=== PATIENT | male | born 1980 | race Caucasian/White ===

== ENCOUNTER 2017-02-13 14:57 | Inpatient (IN) ==
[2017-02-13 18:56] LABS: Basophils # 0.1 K/mcL (0.0-0.2); Basophils % 1.1 %; Eosinophils # 0.3 K/mcL (0.0-0.6); Eosinophils % 3.6 %; Immature Granulocytes % 0.4 % (0-4); Lymphocytes % 32.6 %; Mean Corpuscular HGB Conc 34.1 g/dL (31.6-35.5); Mean Corpuscular Hemoglobin 31.7 pg (28.0-33.3); Mean Platelet Volume 9.7 fL (9.4-12.4); Monocytes # 0.7 K/mcL (0.0-1.3); Neutrophils # 4.9 K/mcL (1.6-8.9); Platelet Count 272 K/mcL (140-400); Red Blood Count 4.73 M/mcL (4.19-5.50); Red Cell Distribution Width 13.5 % (11.5-14.5); Segmented Neutrophils % 54.3 %
[2017-02-13] MEDS ORDERED: *HR* Morphine 2 MG/ML SYRINGE IVP ONE (19:05)
[2017-02-13] MEDS ORDERED: Ondansetron 4 MG/2 ML VIAL IV ONE (19:05)
[2017-02-13] MEDS ORDERED: 0.9 % Sodium Chloride 1,000 ML IVC ONE (19:05)
--- NOTE | 2017-02-13 19:06 | Emergency Department Note ---
Disposition Clinical Impression: Abdominal pain Qualifiers: Abdominal location: right lower quadrant Qualified Code(s): R10.31 - Right lower quadrant pain Acute Crohn's disease Qualifiers: Digestive disease complication type: without complication Qualified Code(s): K50.90 - Crohn's disease, unspecified, without complications Disposition: Admitted As Inpatient Condition: Undetermined Referrals: NO,PCP [Primary Care Provider] - Forms: Work/School Release, ED Satisfaction Letter Time of Disposition: 20:35 Abdominal Pain HPI - General Chief Complaint: ED Abdominal Pain Stated Complaint: abd pain Time Seen by Provider: 02/13/17 18:06 Source: patient Mode of arrival: ambulatory Limitations: no limitations Nursing Notes Reviewed: Yes Vital Signs Reviewed: Yes - History of Present Illness HPI Narrative: 36-year-old male with history of Crohn's disease arrives to [facility] emergency department after the patient was complaining of 4 days of right lower quadrant pain. The patient states he has had a flare up of his Crohn's in the past roughly 2 years ago. He did see a specialist at that time. The patient denies any medications or visits with specialist since then. The patient does not regularly have any flareups. The patient states that he had associated nausea and black stools. The patient did go to urgent care yesterday for evaluation because initially the patient was thinking he was experiencing kidney stones. He was told that he was having a Crohn's flare and he was prescribed methyl prednisone. The patient states that his pain is worsened over the past 24 hours. He continues to experience black stools and his abdomen is slightly distended from his baseline. The patient denies any fevers but does admit to subjective chills. Pt Subjective Complaint: abdominal pain Onset (ago): day(s) (4) Consistency: constant Location: RLQ Pain Severity: moderate Pain Scale: 8 Quality: cramping, stabbing Radiation: none Migration to: no migration Improves with: nothing Worsens with: nothing Context: history of similar episodes Associated symptoms: Reports: nausea, diarrhea, chills, melena Treatments prior to arrival: other (prednisone) - Related Data Home Medications Medication Instructions Recorded Confirmed Tylenol 02/13/17 Allergies Allergy/AdvReac Type Severity Reaction Status Date / Time Penicillins [PCN] Allergy Swelling Verified 02/13/17 14:02 of Lip/Tongue/Throat Review of Systems: Review of Systems Constitutional: Denies fevers, admits to chills, HEENT: Denies headache, Respiratory: Denies cough, sputum change, hemoptysis, dyspnea Cardiac: Denies chest pain, pressure, palpitations, dyspnea on exertion, pedal edema Gastrointestinal: Admits to abdominal pain, denies changes in bowel habits, vomiting, admits to nausea, denies hematemesis, hematochezia, admits to melena Genitourinary: Denies dysuria, hematuria, nocturia, change in frequency, urgency, incontinence Neurologic: Denies headaches, dizziness, syncope, focalized weakness, paraesthesias, weakness Musculoskeletal: Denies back pain, joint pain, admits to myalgias All systems ED: reviewed and negative except as stated. Abdominal Pain PMH - Past Medical History Medical history: Reports: asthma, kidney stones, other (Crohn's disease) Male Surgical History: Reports: no surgical history Psychiatric history: Reports: no psych history - Social History Smoking status: Former smoker Alcohol use: Reports: none Drug use: Reports: none Physical Exam - General Limitations: no limitations General appearance: alert - Head Head exam: atraumatic, normocephalic, normal inspection - Eye Eye exam: Present: normal appearance, PERRL, EOMI - ENT ENT exam: normal exam, normal oropharynx, mucous membranes moist - Neck Neck exam: Present: normal inspection, full ROM, trachea midline - Chest Chest inspection: Present: normal inspection, symmetric chest wall rise - Respiratory Respiratory exam: Present: normal lung sounds bilaterally - Cardiovascular Cardiovascular exam: Present: regular rate, normal rhythm, normal heart sounds - Abdominal Exam Abdominal exam: Present: tenderness (Right lower quadrant pain), distention, guarding, diminished bowel sounds. Absent: rebound, rigidity Abdominal tenderness: Present: RLQ - Extremities Exam Extremities exam: Present: normal inspection, full ROM. Absent: tenderness, pedal edema - Back Exam Back exam: Present: normal inspection, full ROM. Absent: tenderness - Neurological Exam Neurological exam: Present: alert, oriented X3 - Psychiatric Psychiatric exam: Present: normal affect, normal mood - Skin Skin exam: Present: warm, dry, intact, normal color Course Vital Signs Temperature 97.6 F 02/13/17 15:33 Pulse Rate 105 02/13/17 15:33 Respiratory Rate 16 02/13/17 15:33 Blood Pressure 134/88 02/13/17 15:33 O2 Sat by Pulse Oximetry 97 02/13/17 15:33 Temperature 97.6 F 02/13/17 15:33 Pulse Rate 95 02/13/17 19:34 Respiratory Rate 16 02/13/17 19:34 Blood Pressure 114/79 02/13/17 19:34 O2 Sat by Pulse Oximetry 96 02/13/17 19:34 Oxygen Delivery Oxygen Delivery Room Air Abdominal Pain - MDM Narrative Medical decision making narrative: CT scan of the patient's abdomen reveals findings consistent with early partial bowel obstruction versus changes associated with intra-abdominal process. The patient has no leukocytosis or fever at this time. The patient's pain has been fairly difficult to control here in the emergency department as with his nausea. The patient does not have follow-up with GI physician. Patient does not feel comfortable being discharged at this time. Admit the patient to the hospital for pain control, steroid administration, and follow-up. Spoke with Dr. Rodriguez who requested that we inform her surgery that the patient will be admitted to the hospital. Patient accepted. - Lab Data Lab results reviewed: Yes I reviewed the patient's lab results. Result diagrams: 02/13/17 18:50 02/13/17 18:50 Lab Results 02/13/17 02/13/17 02/13/17 Range/Units 18:50 18:50 21:00 WBC 9.1 (4.3-11.1) K/mcL RBC 4.73 (4.19-5.50) M/mcL Hgb 15.0 (12.9-16.9) g/dL Hct 44.0 (37.5-50.1) % MCV 93.0 (83.0-100.0) fL MCH 31.7 (28.0-33.3) pg MCHC 34.1 (31.6-35.5) g/dL RDW 13.5 (11.5-14.5) % Plt Count 272 (140-400) K/mcL MPV 9.7 (9.4-12.4) fL Immature Gran % 0.4 (0-4) % Seg Neutrophils % 54.3 % Lymphocytes % 32.6 % Monocytes % 8.0 % Eosinophils % 3.6 % Basophils % 1.1 % Neutrophils # 4.9 (1.6-8.9) K/mcL Lymphocytes # 3.0 (0.6-4.6) K/mcL Monocytes # 0.7 (0.0-1.3) K/mcL Eosinophils # 0.3 (0.0-0.6) K/mcL Basophils # 0.1 (0.0-0.2) K/mcL Sodium 138 (136-145) mEq/L Potassium 4.1 (3.5-4.5) mEq/L Chloride 104 (98-109) mEq/L Carbon Dioxide 21 (19-29) mEq/L BUN 14 (8-26) mg/dL Creatinine 0.91 (0.72-1.25) mg/dL Est GFR ( Amer) > 60 (> 60) Est GFR (Non-Af Amer) > 60 (> 60) BUN/Creatinine Ratio 15 (6-26) Glucose 89 (70-99) mg/dL Calculated Osmolality 286 (280-300) Calcium 9.7 (8.6-10.8) mg/dL Total Bilirubin 0.3 (0.2-1.2) mg/dL Direct Bilirubin 0.1 (0.0-0.5) mg/dL Indirect Bilirubin 0.2 (0.0-1.2) mg/dL AST 23 (5-34) Units/L ALT 37 (0-55) Units/L Alkaline Phosphatase 76 (38-126) Units/L Serum Total Protein 7.9 (6.0-8.3) g/dL Albumin 4.1 (3.5-5.0) g/dL Globulin 3.8 H (2.4-3.5) g/dL Albumin/Globulin Ratio 1.1 (1.1-2.2) Amylase 48 (25-125) Units/L Lipase 32 (8-78) Units/L Urine Color Yellow (Yellow) Urine Clarity Clear (Clear) Urine pH 5.5 (5.0-8.0) pH Units Ur Specific [place] > 1.030 H (1.010-1.025) Urine Protein Negative (Neg-Trace) mg/dL Urine Glucose (UA) Normal (Normal) mg/dL Urine Ketones Negative (Negative) mg/dL Urine Blood Negative (Negative) Urine Nitrite Negative (Negative) Urine Bilirubin Negative (Negative) Urine Urobilinogen Normal (Normal) mg/dL Ur Leukocyte Esterase Negative (Negative) Ur Culture Indicated? NO (NO) - Radiology Data Radiology results reviewed: Yes I reviewed the patient's radiology results.
[2017-02-13 19:10] LABS: Alanine Aminotransferase 37 Units/L (0-55); Albumin 4.1 g/dL (3.5-5.0); Albumin/Globulin Ratio 1.1 (1.1-2.2); Alkaline Phosphatase 76 Units/L (38-126); Amylase 48 Units/L (25-125); Aspartate Amino Transferase 23 Units/L (5-34); BUN/Creatinine Ratio 15 (6-26); Bilirubin,Direct 0.1 mg/dL (0.0-0.5); Bilirubin,Indirect 0.2 mg/dL (0.0-1.2); Bilirubin,Total 0.3 mg/dL (0.2-1.2); Blood Urea Nitrogen 14 mg/dL (8-26); Calcium 9.7 mg/dL (8.6-10.8); Carbon Dioxide 21 mEq/L (19-29); Chloride 104 mEq/L (98-109); Globulin 3.8 g/dL (2.4-3.5); Lipase 32 Units/L (8-78); Osmolality,Calculated 286 (280-300); Potassium 4.1 mEq/L (3.5-4.5); Sodium 138 mEq/L (136-145); Total Protein 7.9 g/dL (6.0-8.3); eGFR For African Americans > 60 (> 60); eGFR For Non-African Americans > 60 (> 60)
[2017-02-13 19:14] LABS: Glucose 89 mg/dL (70-99)
--- NOTE | 2017-02-13 19:42 | Emergency Department Note ---
START Narrative - START START: I examined this patient and my medical decision-making was reviewed with the RU[employer] M[employer] OPERATOR/PA/Advanced Practice Nurse/Resident Physician. I agree with the documented findings, disposition and treatment plan as described except to the extent set forth below. ED attending note: Patient seen with emergency medicine resident Dr. Bhandari. Please see a copy of his note for details of the H&P, evaluation, management and disposition of this patient. We independently had [id number] contact with the patient Briefly: A 36-year-old male history of Crohn's disease. Currently not seeing a specialist normal on inspection medicines for this was seen in an outside facility a few days ago and discharged home. Increasing abdominal bloating talk or black stools and abdominal pain. He is bloated but not tympanitic. He slightly tachycardic at rest 105. He is diffusely tender but no rebound. Patient will get labs IV fluids anti-emetics analgesics abdominal pelvic CT with IV contrast. Disposition pending.
[2017-02-13 21:10] LABS: Bilirubin,Urine Negative (Negative); Blood,Urine Negative (Negative); Clarity,Urine Clear (Clear); Color,Urine Yellow (Yellow); Glucose,Urine (UA) Normal (Normal); Ketones,Urine Negative (Negative); PH,Urine 5.5 pH Units (5.0-8.0); Protein,Urine Negative (Neg-Trace); Specific Gravity,Urine > 1.030 (1.010-1.025); Urobilinogen,Urine Normal (Normal)
[2017-02-13 21:11] LABS: Leukocyte Esterase,Urine Negative (Negative); Nitrite,Urine Negative (Negative)
[2017-02-13] MEDS ORDERED: *HR* HYDROmorphone (PF) 1 MG/ML SYRINGE IVP ONE (21:49)
[2017-02-14] MEDS: *HR* Morphine 2 MG/ML SYRINGE IVP PRN ×5 (02:16→21:51)
[2017-02-14] MEDS: 0.9 % Sodium Chloride 1,000 ML IVC SCH ×3 (02:36→18:58)
[2017-02-14] MEDS ORDERED: Naloxone 0.4 MG/ML INJ IVP PRN (02:43)
[2017-02-14] MEDS ORDERED: Acetaminophen 325 MG TABLET PO PRN (02:43)
[2017-02-14] MEDS ORDERED: methylPREDNISolone 125 MG/2 ML VIAL IVP ONE (02:46)
--- NOTE | 2017-02-14 02:49 | Internal Med History&Physical ---
Date of Encounter: 02/14/17 Time of Encounter: 02:48 Assessment and Plan (1) Acute Crohn's disease Status: Suspected Emperically treat with solumedrol. ? antibiotics. will obtain stool cultures. GI consult, for further management and w/u Qualifiers: Digestive disease complication type: with rectal bleeding Qualified Code(s) : K50.911 - Crohn's disease, unspecified, with rectal bleeding (2) Partial small bowel obstruction Status: Acute Per CT scan of the abdomen. Keep NPO / bowel rest, IV fluids. solumedrol. (3) Hematochezia Status: Acute Likely due to crohn's disease / enteritis. Monitor H&H. PRBC transfusion, if there is significant drop in H&H (4) Abdominal pain Status: Acute Likely due to crohn's disease and partial SBO. supportive care Qualifiers: Abdominal location: generalized Qualified Code(s): R10.84 - Generalized abdominal pain Internal Medicine - H&P: HPI Chief complaint: Abdominal pain Admitted From: Emergency Dept Plans for Post Hospital Care: Home History of present illness: Mr. 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 He presents to the emergency department, with 4 day h /o right lower quadrant abdominal pain, which is gradually worsening. He reports intermittent sharp pain, which is nonradiating. Certain kinds of foods (greesy foods) worsen the pain. Turning on the right side and some pressure on the right lower abdomen sometimes improve the pain. Pain was very severe on his presentation to emergency department and required IV morphine and dilaudid to relieve the pain. He reports diarrhea, but about 10 bowel movements including diarrhea yesterday. He reports dark blood in the bowel movement, but denies melena. He reports some nausea but no vomiting. He denies chest pain, shortness shortness of breath, cough, fever, chills, dysuria, hematuria. He was evaluated in the emergency department and CT scan of the abdomen and pelvis , suspicious for partial obstruction. He is admitted to the hospitalist service for further management. Past Med Surg Social Fam HX - Past Medical History Medical history: asthma, kidney stones, other (Crohn's disease) Psychiatric history: no psych history - Social History Smoking Status: Former smoker Smokeless Tobacco Status: No Alcohol use: none Drug use: none - Family History Father Hx Family Cardiac Disorders: Yes ([place], HTN, HLD) Hx Family Respiratory Disorders: Yes (COPD, Asthma) Hx Family Cancer: No Hx Family GI Disorders: Yes (GERD) Hx Family Genitourinary Disorders: No Hx Family Endocrine Disorder: Yes (DM) Hx Family Musculoskeletal Disorders: No Hx Family Neuromuscular Disorders: No Hx Family Neurologic Disorders: No Hx Family HEENT Disorders: No Hx Family Autoimmune Disorders: No Hx Family Reproductive Disorders: No Hx Family Psychosocial Disorders: No Hx Family Medical Disorders: No Mother Hx Family Cardiac Disorders: No Hx Family Respiratory Disorders: No Hx Family Cancer: No Hx Family GI Disorders: No Hx Family Genitourinary Disorders: No Hx Family Endocrine Disorder: No Hx Family Musculoskeletal Disorders: No Hx Family Neuromuscular Disorders: No Hx Family Neurologic Disorders: No Hx Family HEENT Disorders: No Hx Family Autoimmune Disorders: No Hx Family Reproductive Disorders: No Hx Family Psychosocial Disorders: Yes (Bipolar) Hx Family Medical Disorders: No Brother Hx Family Cardiac Disorders: No Hx Family Respiratory Disorders: No Hx Family Cancer: No Hx Family GI Disorders: Yes (Chrons) Hx Family Genitourinary Disorders: No Hx Family Endocrine Disorder: No Hx Family Musculoskeletal Disorders: No Hx Family Neuromuscular Disorders: No Hx Family Neurologic Disorders: No Hx Family HEENT Disorders: No Hx Family Autoimmune Disorders: No Hx Family Reproductive Disorders: No Hx Family Psychosocial Disorders: No Hx Family Medical Disorders: No Internal Medicine - H&P: Meds Acetaminophen [Tylenol] 1,000 mg PO Q6HR PRN 02/13/17 [History] Ciprofloxacin [Cipro] 500 mg PO BID #6 tablet 02/18/17 [Rx] MetroNIDAZOLE [Flagyl] 500 mg PO TID #9 tablet 02/18/17 [Rx] Omeprazole [PriLOSEC] 20 mg PO DAILY #20 cap 02/18/17 [Rx] OxyCODONE/APAP 7.5/325 [Percocet 7.5/325 MG] 1 each PO Q6HR PRN #10 tablet 02/18 [Rx] Allergies Penicillins [PCN] Allergy (Verified 02/13/17 14:02) Swelling of Lip/Tongue/Throat All Systems PM: A 10-system review of systems was performed and is negative for pertinent findings except as documented above in the HPI. - Constitutional Vitals: Temp Pulse Resp BP Pulse Ox 97.5 F L 85 15 137/86 97 02/13/17 22:29 02/13/17 22:29 02/13/17 22:29 02/13/17 22:29 02/13/17 22:29 Exam: General: In mild distress at the time of my evaluation HEENT: Oral mucosa is moist. No conjunctival palor or scleral icterus Neck: No obvious neck swellings Lungs: Clear to auscultation Cardiac: Regular rate and rhythm. No significant murmurs Abdomen: Soft. Tenderness in the RLQ, with some rebound tenderness. Bowel sounds present Genitourinary: No gilliland catheter Neurological: Alert and oriented. No gross localizing deficits Psych: Not aggressive or agitated Extremities: no significant leg edema Skin: No generalized rash Internal Med - H&P Results - Labs CBC & Chem 7: 02/18/17 05:06 02/17/17 03:30 - Impressions ITS Impressions Abdomen/Pelvis CT 02/13/17 19:17 IMPRESSION: 1. Some fecalization of contents in the distal small bowel. This is often seen with slow transit or a partial obstruction. No other significant bowel distention or inflammatory changes. No CT evidence of appendicitis. 2. Otherwise unremarkable CT of the abdomen and pelvis. Questionable nonobstructive right-sided nephrolithiasis. D/ / 02/13/2017 20:11:31 Coy Nguyen MD / [email or web address] Interpreting Provider: Coy Nguyen MD
[2017-02-14] MEDS: Pantoprazole 40 MG VIAL IVP SCH (03:23)
[2017-02-14] MEDS: Ondansetron 4 MG/2 ML VIAL IVP PRN ×2 (07:39→16:44)
[2017-02-14] MEDS: methylPREDNISolone 125 MG/2 ML VIAL IVP SCH ×3 (07:39→21:51)
--- NOTE | 2017-02-14 13:46 | Event Note ---
Date of Encounter: 02/14/17 Time of Encounter: 13:42 Patient is a 36 y/o male with PMH of crohn's disease who is admitted for severe abdominal discomfort likely secondary to crohn's disease flare up. He reports of eating greasy pizza for the last three days which have exacerbated her symptoms. States his last flare up was about two years ago for which he was hospitalized. 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 He is currently not on any medications at home. Patient was seen and examined at bedside. He is resting in bed and reports of feeling better since yesterday. Reports of having a formed bowel movement today with no blood. Denies any nausea or vomiting at this time. Will continue supportive care at this time with IV fluids and systemic steroids. GI consultation has been requested Will advance to clear liquid diet this evening Patient has normal bowel sounds, having normal bowel movements, nontender/ND. Will continue to monitor closely continue pain control.
[2017-02-15] MEDS: Ondansetron 4 MG/2 ML VIAL IVP PRN ×3 (03:00→20:17)
[2017-02-15] MEDS: *HR* Morphine 2 MG/ML SYRINGE IVP PRN ×5 (03:00→20:12)
[2017-02-15] MEDS: methylPREDNISolone 125 MG/2 ML VIAL IVP SCH ×4 (03:00→22:40)
[2017-02-15] MEDS: 0.9 % Sodium Chloride 1,000 ML IVC SCH ×3 (03:00→22:03)
[2017-02-15 04:19] LABS: Hematocrit 42.8 % (37.5-50.1); Immature Granulocytes % 0.8 % (0-4); Lymphocytes # 1.7 K/mcL (0.6-4.6); Mean Corpuscular HGB Conc 32.7 g/dL (31.6-35.5); Mean Corpuscular Hemoglobin 30.4 pg (28.0-33.3); Mean Corpuscular Volume 92.8 fL (83.0-100.0); Monocytes # 0.7 K/mcL (0.0-1.3); Platelet Count 298 K/mcL (140-400); Red Blood Count 4.61 M/mcL (4.19-5.50); Red Cell Distribution Width 13.3 % (11.5-14.5); Segmented Neutrophils % 88.2 %
[2017-02-15 04:32] LABS: BUN/Creatinine Ratio 18 (6-26); Blood Urea Nitrogen 13 mg/dL (8-26); Calcium 9.2 mg/dL (8.6-10.8); Carbon Dioxide 22 mEq/L (19-29); Chloride 104 mEq/L (98-109); Glucose 120 mg/dL (70-99); Magnesium 1.8 mg/dL (1.6-2.6); Osmolality,Calculated 287 (280-300); Phosphorous 2.8 mg/dL (2.3-4.7); Potassium 3.9 mEq/L (3.5-4.5); Sodium 138 mEq/L (136-145); eGFR For African Americans > 60 (> 60); eGFR For Non-African Americans > 60 (> 60)
[2017-02-15] MEDS: Pantoprazole 40 MG VIAL IVP SCH (06:00)
[2017-02-15] MEDS ORDERED: Sennosides/Docusate Sodium TABLET PO PRN (13:34)
--- NOTE | 2017-02-15 13:34 | Internal Med Progress Note ---
Date of Encounter: 02/15/17 Time of Encounter: 13:32 - Assessment and plan (1) Acute Crohn's disease Current Visit: Yes Status: Acute Assessment and plan: Pain better controlled will continue IV steroids (decreased frequency) continue IV fluids advance to soft diet awaiting GI consultation Qualifiers: Digestive disease complication type: unspecified complication Qualified Code(s): K50.919 - Crohn's disease, unspecified, with unspecified complications (2) Abdominal pain Current Visit: Yes Status: Acute Assessment and plan: pain secondary to acute crohn's flare up plan as listed above Qualifiers: Abdominal location: generalized Qualified Code(s): R10.84 - Generalized abdominal pain (3) Hematochezia Current Visit: Yes Status: Resolved (4) DVT prophylaxis Current Visit: Yes Status: Acute Assessment and plan: early ambulation - Subjective Interval history: Patient seen and examined at bedside. reports of feeling better compared to previous day. States he is able tolerate clear liquid diet well and would like to advance his diet. Reports of requiring the pain medications less frequently. Reports of passing gas but not had a bowel movement today. - Constitutional Vitals: Temp Pulse Resp BP Pulse Ox 97.8 F 105 14 105/64 95 02/15/17 10:51 02/15/17 10:51 02/15/17 10:51 02/15/17 10:51 02/15/17 10:51 General appearance: Present: cooperative, A&O X 3, no acute distress, answers questions appropriately - Head Head exam: Present: atraumatic, normocephalic - Eye Eye exam: Present: normal appearance, PERRL, conjuntiva pink, sclera anicteric - Respiratory Respiratory exam: Present: CTAB. Absent: accessory muscle use, rales, rhonchi, wheezes - Cardiovascular Cardiovascular exam: Present: RRR, +S1, +S2. Absent: diastolic murmur, gallop, rubs, systolic murmur - GI/Abdominal GI/Abdominal exam: Present: normal bowel sounds, soft, tenderness (mild diffuse tenderness to palpation ), no peritoneal signs. Absent: distended - Extremities Exam Extremities exam: Present: warm, radial pulses palpable and symetrical. Absent : calf tenderness, cyanotic, pedal edema - Neurological Exam Neurological exam: Present: alert, oriented X3 - Psychiatric Psychiatric exam: Present: normal affect, normal mood Internal Medicine: Result - Labs CBC & Chem 7: 02/15/17 03:14 02/15/17 03:14 Labs: Short CBC 02/15/17 Range/Units 03:14 WBC 21.5 H D (4.3-11.1) K/mcL Hgb 14.0 (12.9-16.9) g/dL Hct 42.8 (37.5-50.1) % Plt Count 298 (140-400) K/mcL Neutrophils # 19.0 H (1.6-8.9) K/mcL BMP 02/15/17 03:14 Sodium 138 Potassium 3.9 Chloride 104 Carbon Dioxide 22 BUN 13 Creatinine 0.74 Glucose 120 H Calcium 9.2 Consult Discharge Plan - Plan Referrals: NO,PCP [Primary Care Provider] -
[2017-02-15] MEDS ORDERED: Melatonin 3 MG TABLET PO ONE (22:10)
[2017-02-16] MEDS: *HR* Morphine 2 MG/ML SYRINGE IVP PRN ×4 (01:01→20:50)
[2017-02-16] MEDS: Ondansetron 4 MG/2 ML VIAL IVP PRN ×2 (04:43→22:20)
[2017-02-16] MEDS: 0.9 % Sodium Chloride 1,000 ML IVC SCH ×3 (05:24→22:13)
[2017-02-16] MEDS: Pantoprazole 40 MG VIAL IVP SCH (05:25)
[2017-02-16 05:43] LABS: Basophils % 0.1 %; Hematocrit 41.7 % (37.5-50.1); Hemoglobin 13.9 g/dL (12.9-16.9); Immature Granulocytes % 1.7 % (0-4); Lymphocytes # 1.8 K/mcL (0.6-4.6); Lymphocytes % 7.7 %; Mean Corpuscular HGB Conc 33.3 g/dL (31.6-35.5); Mean Corpuscular Hemoglobin 31.5 pg (28.0-33.3); Mean Corpuscular Volume 94.6 fL (83.0-100.0); Mean Platelet Volume 10.6 fL (9.4-12.4); Monocytes # 0.9 K/mcL (0.0-1.3); Neutrophils # 19.9 K/mcL (1.6-8.9); Platelet Count 276 K/mcL (140-400); Red Blood Count 4.41 M/mcL (4.19-5.50); Red Cell Distribution Width 13.5 % (11.5-14.5); Segmented Neutrophils % 86.5 %
[2017-02-16 05:59] LABS: BUN/Creatinine Ratio 21 (6-26); Blood Urea Nitrogen 17 mg/dL (8-26); Calcium 9.3 mg/dL (8.6-10.8); Carbon Dioxide 24 mEq/L (19-29); Chloride 103 mEq/L (98-109); Glucose 120 mg/dL (70-99); Magnesium 2.1 mg/dL (1.6-2.6); Osmolality,Calculated 291 (280-300); Phosphorous 3.4 mg/dL (2.3-4.7); Potassium 3.9 mEq/L (3.5-4.5); Sodium 139 mEq/L (136-145); eGFR For African Americans > 60 (> 60); eGFR For Non-African Americans > 60 (> 60)
[2017-02-16] MEDS: methylPREDNISolone 125 MG/2 ML VIAL IVP SCH (08:08)
--- NOTE | 2017-02-16 08:56 | Internal Med Progress Note ---
Date of Encounter: 02/16/17 Time of Encounter: 08:40 - Assessment and plan (1) Acute Crohn's disease Current Visit: Yes Status: Acute Assessment and plan: Pain better controlled will continue IV steroids (decreased frequency) continue IV fluids advance to soft diet awaiting GI consultation Qualifiers: Digestive disease complication type: unspecified complication Qualified Code(s): K50.919 - Crohn's disease, unspecified, with unspecified complications (2) Abdominal pain Current Visit: Yes Status: Acute Assessment and plan: pain secondary to acute crohn's flare up plan as listed above Qualifiers: Abdominal location: generalized Qualified Code(s): R10.84 - Generalized abdominal pain (3) Hematochezia Current Visit: Yes Status: Resolved (4) DVT prophylaxis Current Visit: Yes Status: Acute Assessment and plan: early ambulation (5) Leukocytosis (leucocytosis) Current Visit: Yes Status: Acute Assessment and plan: Given persistent leukocytosis with abd pain and diarrhea, will start empiric treatment with IV abx will obtain blood cultures prior to initiation of the abx continue to closely monitor Qualifiers: Leukocytosis type: unspecified Qualified Code(s): D72.829 - Elevated white blood cell count, unspecified - Subjective Interval history: Patient seen and examined at bedside. Resting in bed and reports of have loose bowel movement this morning with no blood. States pain is better controlled and is requiring pain medications less frequently. Tolerating PO intake well. Noted to have worsening leukocytosis. Can be secondary to the high dose steroid therapy, however given persistent abd pain, will obtain blood cultures and start empiric treatment with abx. - Constitutional Vitals: Temp Pulse Resp BP Pulse Ox 97.5 F L 96 18 118/72 93 02/16/17 08:09 02/16/17 08:09 02/16/17 08:09 02/16/17 08:09 02/16/17 08:17 General appearance: Present: cooperative, A&O X 3, no acute distress, answers questions appropriately - Head Head exam: Present: atraumatic, normocephalic - Eye Eye exam: Present: normal appearance, conjuntiva pink, sclera anicteric - Respiratory Respiratory exam: Present: CTAB. Absent: accessory muscle use, rales, rhonchi, wheezes - Cardiovascular Cardiovascular exam: Present: RRR, +S1, +S2. Absent: diastolic murmur, gallop, rubs, systolic murmur - GI/Abdominal GI/Abdominal exam: Present: normal bowel sounds, soft, tenderness (diffuse tenderness to palpation), no peritoneal signs. Absent: distended - Extremities Exam Extremities exam: Present: warm, radial pulses palpable and symetrical. Absent : calf tenderness, cyanotic, pedal edema - Neurological Exam Neurological exam: Present: alert, oriented X3 - Psychiatric Psychiatric exam: Present: normal affect, normal mood Internal Medicine: Result - Labs CBC & Chem 7: 02/16/17 04:35 02/16/17 04:35 Labs: Short CBC 02/16/17 Range/Units 04:35 WBC 23.1 H (4.3-11.1) K/mcL Hgb 13.9 (12.9-16.9) g/dL Hct 41.7 (37.5-50.1) % Plt Count 276 (140-400) K/mcL Neutrophils # 19.9 H (1.6-8.9) K/mcL BMP 02/16/17 04:35 Sodium 139 Potassium 3.9 Chloride 103 Carbon Dioxide 24 BUN 17 Creatinine 0.80 Glucose 120 H Calcium 9.3 Consult Discharge Plan - Plan Referrals: NO,PCP [Primary Care Provider] -
--- NOTE | 2017-02-16 09:14 | Gastroenterology Consult Note ---
<Christina Trimble - Last Filed: 02/16/17 10:58> Date of Encounter: 02/16/17 Time of Encounter: 10:47 - Assessment and plan (1) Partial small bowel obstruction Current Visit: Yes Status: Resolved Assessment and plan: Appears to be resolving on current regimen, patient able to pass gas. (2) Acute Crohn's disease Current Visit: Yes Status: Chronic Assessment and plan: Acute on chronic. Reduce steroids to daily, continue Flagyl. Clear liquids today pending Dr. Ascencio evaluation for possible scoping, otherwise, we can do as OTPT. Checking calpro, CRP and ESR. Patient has elevated WBC which may be secondary to steroid therapy for this acute flare. Qualifiers: Digestive disease complication type: unspecified complication Qualified Code(s): K50.919 - Crohn's disease, unspecified, with unspecified complications (3) Hematochezia Current Visit: Yes Status: Resolved Assessment and plan: monitor hgb, currently wnl (4) Dyspepsia Current Visit: Yes Status: Acute Assessment and plan: Continue low dose PPI at time of d/c. - Time Spent With Patient Total time spent is greater than 50% in coordination of care (as documented) at patient's floor/unit and/or counseling patient: less than 15 minutes GI History of Present Illness - Data of Consult Patient: new to practice Consult date: 02/16/17 Requesting Physician: Emy Gregg MD - Consult Narrative Reason for consult: Crohns exacerbation History of present illness: Mr. Whitten is a 36 year old male with a PMH significant for Crohns disease, presented to the ER with 4 day history of RLQ abdominal pain that was worsening. He experienced similar symptoms of RLQ abd pain, diarrhea about 2 years ago, which he described as a Crohns flare. CT imaging suspicious for partial SBO. States certain foods intensify his symptoms, greasy or fatty. He is not currently following with GI or on any other maintenance medications prior to this ER visit. He did indicate dark blood noted in his diarrhea bowel movements prior to admission. Patient states he was first diagnosed 4-5 years ago at [facility]. His brother has severe Crohns disease with multiple surgeries. To date, no resection needed for this patient, he does watch his diet, certain foods make his symptoms worse. Initially, he was on some type of medication, however 1-1.5 years after diagnosis, he felt much improved and went off the medication. About 2 years ago, he had a flare requiring hospitalization in [place] and at [facility] where his most recent scope was done confirming active Crohns disease, per the patient. He has up to 6 BM normally, diarrhea loose to watery, typically brown, except when he is having a flare and then stools are accompanied by dark red blood. Experiences abdominal cramping and pain, nausea which can lead to vomiting if the pain is severe. He does not currently have a GI that accepts his insurance. Colonoscopy: 2 years - [facility] EGD: 4-5 years - [facility] Past Med Surg Social Fam HX - Past Medical History Medical history: asthma, kidney stones, other (Crohn's disease) Psychiatric history: no psych history - Social History Smoking Status: Former smoker Smokeless Tobacco Status: No Alcohol use: none Drug use: none - Family History Father Hx Family Cardiac Disorders: Yes (DC, HTN, HLD) Hx Family Respiratory Disorders: Yes (COPD, Asthma) Hx Family Cancer: No Hx Family GI Disorders: Yes (GERD) Hx Family Genitourinary Disorders: No Hx Family Endocrine Disorder: Yes (DM) Hx Family Musculoskeletal Disorders: No Hx Family Neuromuscular Disorders: No Hx Family Neurologic Disorders: No Hx Family HEENT Disorders: No Hx Family Autoimmune Disorders: No Hx Family Reproductive Disorders: No Hx Family Psychosocial Disorders: No Hx Family Medical Disorders: No Mother Hx Family Cardiac Disorders: No Hx Family Respiratory Disorders: No Hx Family Cancer: No Hx Family GI Disorders: No Hx Family Genitourinary Disorders: No Hx Family Endocrine Disorder: No Hx Family Musculoskeletal Disorders: No Hx Family Neuromuscular Disorders: No Hx Family Neurologic Disorders: No Hx Family HEENT Disorders: No Hx Family Autoimmune Disorders: No Hx Family Reproductive Disorders: No Hx Family Psychosocial Disorders: Yes (Bipolar) Hx Family Medical Disorders: No Brother Hx Family Cardiac Disorders: No Hx Family Respiratory Disorders: No Hx Family Cancer: No Hx Family GI Disorders: Yes (Chrons) Hx Family Genitourinary Disorders: No Hx Family Endocrine Disorder: No Hx Family Musculoskeletal Disorders: No Hx Family Neuromuscular Disorders: No Hx Family Neurologic Disorders: No Hx Family HEENT Disorders: No Hx Family Autoimmune Disorders: No Hx Family Reproductive Disorders: No Hx Family Psychosocial Disorders: No Hx Family Medical Disorders: No - Gastrointestinal NSAID use: None Anticoagulation Use: None Number of BM Per Day: 6 Gastrointestinal: Present: abdominal pain, diarrhea, heartburn, hematochezia, nausea - Constitutional Constitutional: as per HPI - EENT Eyes: as per HPI Ears: Present: as per HPI Nose, mouth and throat: Present: as per HPI - Cardiovascular Cardiovascular ROS: Present: as per HPI - Respiratory Respiratory IM: Present: wheezing - Neurological ROS Neurological GI: Present: as per HPI - Hematologic/Lymphatic Hematologic/Lymphatic pediatric: Present: as per HPI - Musculoskeletal Musculoskeletal ROS GI: Present: as per HPI - Integumentary Integumentary GI: Present: as per HPI - Psychiatric ROS Psychiatric GI: Present: as per HPI - Endocrine Endocrine IM: Present: as per HPI - Constitutional Vitals: Temp Pulse Resp BP Pulse Ox 97.5 F L 96 18 118/72 93 02/16/17 08:09 02/16/17 08:09 02/16/17 08:09 02/16/17 08:09 02/16/17 08:17 General appearance: Present: cooperative, A&O X 3, no acute distress, answers questions appropriately - Head Head exam: Present: atraumatic, normocephalic - Eye Eye exam: Present: normal appearance, sclera anicteric - ENT ENT exam: Present: mucous membranes moist - Neck Neck exam general surgery: Present: normal inspection, trachea midline - Respiratory Respiratory exam: Present: CTAB - Cardiovascular Cardiovascular exam: Present: RRR, +S1, +S2 - GI/Abdominal GI/Abdominal exam: Present: soft, tenderness, no peritoneal signs - Rectal Rectal exam: Present: deferred - Extremities Exam Extremities exam: Present: warm - Neurological Exam Neurological exam: Present: no focal deficits - Psychiatric Psychiatric exam: Present: normal affect, normal mood - Skin Skin exam: Present: dry, intact, normal color, warm Results - Labs CBC & Chem 7: 02/16/17 04:35 02/16/17 04:35 Labs: Last Result Calcium 9.3 mg/dL (8.6-10.8) 02/16/17 04:35 Entire Visit Hgb 13.9 g/dL (12.9-16.9) 02/16/17 04:35 Hct 41.7 % (37.5-50.1) 02/16/17 04:35 Total Bilirubin 0.3 mg/dL (0.2-1.2) 02/13/17 18:50 AST 23 Units/L (5-34) 02/13/17 18:50 ALT 37 Units/L (0-55) 02/13/17 18:50 Amylase 48 Units/L (25-125) 02/13/17 18:50 Lipase 32 Units/L (8-78) 02/13/17 18:50 Consult Discharge Plan - Plan Referrals: NO,PCP [Primary Care Provider] - <Karen Ascencio - Last Filed: 02/16/17 17:14> Date of Encounter: 02/16/17 Time of Encounter: 14:00 - Time Spent With Patient Total time spent is greater than 50% in coordination of care (as documented) at patient's floor/unit and/or counseling patient: GI History of Present Illness - Data of Consult Requesting Physician: Emy Gregg MD - Consult Narrative History of present illness: Mr. Whitten is a 36 year old male - Constitutional Vitals: Temp Pulse Resp BP Pulse Ox 98.0 F 104 18 127/67 94 02/16/17 15:04 02/16/17 15:04 02/16/17 15:04 02/16/17 15:04 02/16/17 15:04 Results - Labs CBC & Chem 7: 02/16/17 04:35 02/16/17 04:35 Labs: Last Result ESR 26 mm/hr (0-10) H 02/16/17 04:35 Calcium 9.3 mg/dL (8.6-10.8) 02/16/17 04:35 C-Reactive Protein 2 mg/L (Less than 5) 02/16/17 04:35 Entire Visit Hgb 13.9 g/dL (12.9-16.9) 02/16/17 04:35 Hct 41.7 % (37.5-50.1) 02/16/17 04:35 Total Bilirubin 0.3 mg/dL (0.2-1.2) 02/13/17 18:50 AST 23 Units/L (5-34) 02/13/17 18:50 ALT 37 Units/L (0-55) 02/13/17 18:50 Amylase 48 Units/L (25-125) 02/13/17 18:50 Lipase 32 Units/L (8-78) 02/13/17 18:50 - Attending Attestation I examined this patient and my medical decision-making was reviewed with the REPRODUCER/PA/Advanced Practice Nurse/Resident Physician. I agree with the documented findings, disposition and treatment plan as described except to the extent set forth below. Hx of Crohn, diag at [facility] by DR Hubert Lora. Not on any meds other then PRN steroids for flare. Admitted now with ?? flare vs Pratil SB obstruction. ESR/CRP not elevated. Plan; Colon on thursday
[2017-02-16] MEDS: MetroNIDAZOLE 500 MG/100 ML 500 MG/100 ML BAG IVPB SCH ×2 (09:59→17:06)
[2017-02-16 10:53] LABS: C-Reactive Protein 2 mg/L (Less than 5)
[2017-02-16] MEDS: *HR* OxyCODONE/APAP 7.5/325 TABLET PO PRN ×2 (12:12→18:27)
[2017-02-16] MEDS ORDERED: SODIUM CHLORIDE/NAHCO3/KCL/PEG 4,000 ML SOLN.RECON PO ONE (17:37)
[2017-02-16] MEDS ORDERED: methylPREDNISolone 125 MG/2 ML VIAL IVP SCH (18:00)
[2017-02-17] MEDS: *HR* OxyCODONE/APAP 7.5/325 TABLET PO PRN ×2 (00:14→15:45)
[2017-02-17] MEDS: MetroNIDAZOLE 500 MG/100 ML 500 MG/100 ML BAG IVPB SCH ×3 (01:19→15:45)
[2017-02-17 03:44] LABS: Basophils % 0.2 %; Eosinophils % 0.1 %; Hematocrit 40.6 % (37.5-50.1); Hemoglobin 13.6 g/dL (12.9-16.9); Immature Granulocytes % 2.2 % (0-4); Lymphocytes # 3.5 K/mcL (0.6-4.6); Lymphocytes % 19.4 %; Mean Corpuscular HGB Conc 33.5 g/dL (31.6-35.5); Mean Corpuscular Hemoglobin 31.2 pg (28.0-33.3); Mean Corpuscular Volume 93.1 fL (83.0-100.0); Mean Platelet Volume 9.5 fL (9.4-12.4); Monocytes # 1.4 K/mcL (0.0-1.3); Neutrophils # 12.5 K/mcL (1.6-8.9); Platelet Count 251 K/mcL (140-400); Red Blood Count 4.36 M/mcL (4.19-5.50); Red Cell Distribution Width 13.3 % (11.5-14.5); Segmented Neutrophils % 70.1 %
[2017-02-17 03:53] LABS: BUN/Creatinine Ratio 17 (6-26); Blood Urea Nitrogen 13 mg/dL (8-26); Calcium 8.5 mg/dL (8.6-10.8); Carbon Dioxide 28 mEq/L (19-29); Chloride 103 mEq/L (98-109); Glucose 94 mg/dL (70-99); Magnesium 2.1 mg/dL (1.6-2.6); Osmolality,Calculated 286 (280-300); Phosphorous 3.1 mg/dL (2.3-4.7); Potassium 3.5 mEq/L (3.5-4.5); Sodium 138 mEq/L (136-145); eGFR For African Americans > 60 (> 60); eGFR For Non-African Americans > 60 (> 60)
[2017-02-17] MEDS: Pantoprazole 40 MG VIAL IVP SCH (05:43)
[2017-02-17] MEDS ORDERED: Polyethylene Glycol 3350 255 GM POWDER PO STA (09:12)
[2017-02-17] MEDS: methylPREDNISolone 125 MG/2 ML VIAL IVP SCH (09:25)
[2017-02-17] MEDS ORDERED: Lidocaine -MPF 2% 5 ML VIAL INFILT ONE (09:48)
[2017-02-17] MEDS ORDERED: *HR* Propofol 500 MG/50 ML BOTTLE IVC ONE (09:48)
--- NOTE | 2017-02-17 12:05 | Internal Med Progress Note ---
Date of Encounter: 02/17/17 Time of Encounter: 11:30 - Assessment and plan (1) Acute Crohn's disease Current Visit: Yes Status: Chronic Assessment and plan: Continue current management with steroids, IV antibiotics. GI following. Plan for colonoscopy later today. Moderate risk for complications. Qualifiers: Digestive disease complication type: unspecified complication Qualified Code(s): K50.919 - Crohn's disease, unspecified, with unspecified complications (2) Abdominal pain Current Visit: Yes Status: Acute Assessment and plan: Improving. From Crohn's disease. Qualifiers: Abdominal location: generalized Qualified Code(s): R10.84 - Generalized abdominal pain (3) Partial small bowel obstruction Current Visit: Yes Status: Resolved (4) Hematochezia Current Visit: Yes Status: Resolved (5) DVT prophylaxis Current Visit: Yes Status: Acute (6) Leukocytosis (leucocytosis) Current Visit: Yes Status: Acute Assessment and plan: Likely due to Crohn's flare. On IV antibiotics. Could also be related to steroid use. Improving. Qualifiers: Leukocytosis type: unspecified Qualified Code(s): D72.829 - Elevated white blood cell count, unspecified - Subjective Interval history: Patient is feeling better now. Abdominal pain is improved. Tolerated MiraLAX prep. Scheduled to undergo colonoscopy later today. - Constitutional Vitals: Temp Pulse Resp BP Pulse Ox 97.5 F L 92 15 134/86 96 02/17/17 11:28 02/17/17 11:28 02/17/17 11:28 02/17/17 11:28 02/17/17 11:28 General appearance: Present: cooperative, A&O X 3, no acute distress, answers questions appropriately - Respiratory Respiratory exam: Present: CTAB. Absent: accessory muscle use, rales, rhonchi, wheezes - Cardiovascular Cardiovascular exam: Present: RRR, +S1, +S2. Absent: diastolic murmur, gallop, rubs, systolic murmur - GI/Abdominal GI/Abdominal exam: Present: normal bowel sounds, soft, tenderness (Mild left lower quadrant tenderness), no peritoneal signs. Absent: distended - Neurological Exam Neurological exam: Present: alert, CN II-XII intact, oriented X3, no focal deficits. Absent: facial droop, speech deficit Internal Medicine: Result - Labs CBC & Chem 7: 02/17/17 03:30 02/17/17 03:30 Labs: Short CBC 02/17/17 Range/Units 03:30 WBC 17.8 H (4.3-11.1) K/mcL Hgb 13.6 (12.9-16.9) g/dL Hct 40.6 (37.5-50.1) % Plt Count 251 (140-400) K/mcL Neutrophils # 12.5 H (1.6-8.9) K/mcL BMP 02/17/17 03:30 Sodium 138 Potassium 3.5 Chloride 103 Carbon Dioxide 28 BUN 13 Creatinine 0.78 Glucose 94 Calcium 8.5 L Consult Discharge Plan - Plan Referrals: NO,PCP [Primary Care Provider] - - Attending Attestation This document has been at least partially created by [employer] recognition technology by Dr. Viramontes. Errors in grammar, wording or other phrases may exist. If errors are found after the documentation is signed, they will be addressed individually in the addendum section of this document when appropriate.
--- NOTE | 2017-02-17 12:35 | Anesthesia Evaluation PreOp ---
Date of Encounter: 02/17/17 Time of Encounter: 12:32 - Past History Planned Operation: Colonoscopy Cardiac History: Denies any Significant Hx Pulmonary History: Former smoker, Asthma Other Medical History: Renal (Stones), Other (Crohn's Dx, Partial small bowel obstruction) Alcohol Use: none Drug use: none Medications and Allergies Acetaminophen [Tylenol] 1,000 mg PO Q6HR PRN 02/13/17 [History] Allergies Penicillins [PCN] Allergy (Verified 02/13/17 14:02) Swelling of Lip/Tongue/Throat - Meds/Allergy Pre-op Review Medications Reviewed: Yes Allergies Reviewed: Yes Beta Blockers on Current Med List: No Anesthesia Results - Labs 02/17/17 03:30 02/17/17 03:30 Anesthesia Exam O2 Sat O2 Sat by Pulse Oximetry 96 O2 Sat by Pulse Oximetry 96 O2 Sat by Pulse Oximetry 94 O2 Sat by Pulse Oximetry 97 O2 Sat by Pulse Oximetry 97 O2 Sat by Pulse Oximetry 97 O2 Sat by Pulse Oximetry 94 Vital Signs Temp Pulse Resp BP Pulse Ox 97.6 F 105 16 134/88 97 02/13/17 15:33 02/13/17 15:33 02/13/17 15:33 02/13/17 15:33 02/13/17 15:33 Height: 5'11'' Weight: 204# NPO (# of Hours): > 8 hrs Pain Scale: 0 Pain Scale Used: Numeric (1 - 10) - HEENT Pupil (Motor): Pupils equal, EOMI Mallampati: II Teeth: Edentulous Oral Opening: Greater than 3 - FINAL APPLICATION REVIEWER LOC: Oriented FINAL APPLICATION REVIEWER Motor: Normal RUE, Normal LUE, Normal RLE, Normal LLE, Normal Face FINAL APPLICATION REVIEWER Sensory: Normal: RUE, LUE, RLE, LLE, Face - Cardiac Rhythm: Regular Murmur: None JVD: No Carotid Bruit: No - Pulmonary Breath Sounds: bilateral Clear Respiratory Effort: Symmetrical Anesthesia Assess/Plan ASA Score: 2 Modified [place] Scale for Level of Consciousness: Cooperative, oriented, and tranquil Anesthetic Plan: MAC Autologous Blood: Yes Monitoring Plan: Standard Monitors Recovery Plan: Other
[2017-02-17] MEDS: 0.9 % Sodium Chloride 1,000 ML IVC SCH (17:57)
[2017-02-17] MEDS: *HR* Morphine 2 MG/ML SYRINGE IVP PRN (19:51)
[2017-02-18] MEDS: MetroNIDAZOLE 500 MG/100 ML 500 MG/100 ML BAG IVPB SCH ×2 (00:11→08:45)
[2017-02-18 05:30] LABS: Basophils % 0.3 %; Eosinophils # 0.1 K/mcL (0.0-0.6); Eosinophils % 0.4 %; Hematocrit 41.9 % (37.5-50.1); Hemoglobin 13.9 g/dL (12.9-16.9); Immature Granulocytes % 2.7 % (0-4); Lymphocytes # 3.7 K/mcL (0.6-4.6); Mean Corpuscular HGB Conc 33.2 g/dL (31.6-35.5); Mean Corpuscular Hemoglobin 30.8 pg (28.0-33.3); Mean Corpuscular Volume 92.9 fL (83.0-100.0); Mean Platelet Volume 9.7 fL (9.4-12.4); Monocytes # 1.6 K/mcL (0.0-1.3); Monocytes % 9.8 %; Neutrophils # 10.1 K/mcL (1.6-8.9); Nucleated Red Blood Cells 0.2 /100 WBC (0); Platelet Count 273 K/mcL (140-400); Red Blood Count 4.51 M/mcL (4.19-5.50); Red Cell Distribution Width 13.3 % (11.5-14.5); Segmented Neutrophils % 63.8 %
[2017-02-18] MEDS: Pantoprazole 40 MG VIAL IVP SCH (05:40)
[2017-02-18] MEDS: *HR* OxyCODONE/APAP 7.5/325 TABLET PO PRN (05:48)
[2017-02-18 06:47] VITALS: BP 126/72
[2017-02-18] MEDS: methylPREDNISolone 125 MG/2 ML VIAL IVP SCH (08:45)
[2017-02-18] MEDS: *HR* Morphine 2 MG/ML SYRINGE IVP PRN (08:45)
--- NOTE | 2017-02-18 10:46 | Discharge Summary ---
Date of Encounter: 02/18/17 Time of Encounter: 10:43 - Discharge Diagnosis (1) Acute Crohn's disease Priority: Primary Status: Suspected Qualifiers: Digestive disease complication type: with rectal bleeding Qualified Code(s) : K50.911 - Crohn's disease, unspecified, with rectal bleeding (2) Abdominal pain Priority: Secondary Status: Acute Qualifiers: Abdominal location: generalized Qualified Code(s): R10.84 - Generalized abdominal pain (3) Partial small bowel obstruction Priority: Secondary Status: Resolved (4) Hematochezia Priority: Secondary Status: Resolved (5) DVT prophylaxis Priority: Secondary Status: Acute (6) Leukocytosis (leucocytosis) Priority: Secondary Status: Acute Qualifiers: Leukocytosis type: unspecified Qualified Code(s): D72.829 - Elevated white blood cell count, unspecified - Discharge Medications Prescriptions: OxyCODONE/APAP 7.5/325 [Percocet 7.5/325 MG] 1 each PO Q6HR PRN #10 tablet PRN Reason: Moderate Pain Ciprofloxacin [Cipro] 500 mg PO BID #6 tablet MetroNIDAZOLE [Flagyl] 500 mg PO TID #9 tablet Omeprazole [PriLOSEC] 20 mg PO DAILY #20 cap Home Medications: Acetaminophen [Tylenol] 1,000 mg PO Q6HR PRN 02/13/17 [History] Ciprofloxacin [Cipro] 500 mg PO BID #6 tablet 02/18/17 [Rx] MetroNIDAZOLE [Flagyl] 500 mg PO TID #9 tablet 02/18/17 [Rx] Omeprazole [PriLOSEC] 20 mg PO DAILY #20 cap 02/18/17 [Rx] OxyCODONE/APAP 7.5/325 [Percocet 7.5/325 MG] 1 each PO Q6HR PRN #10 tablet 02/18 [Rx] Allergies/Adverse Reactions: Allergies Penicillins [PCN] Allergy (Verified 02/13/17 14:02) Swelling of Lip/Tongue/Throat Date of admission: 02/14/17 02:43 Primary care physician: PCP NO Consults: 02/14/17 02:47 Consult to Gastroenterology [CONS] Routine Consulting Provider: [facility] Mary Jo Reason for Consult: Flare of Crohn's disease Call Completed: No Discharging clinician: Sd Viramontes Anticipated date of discharge: 02/18/17 - Patient Status Disposition: Home, Self-Care Condition: Good Functional capacity at discharge: independent ambulation Overall status at discharge: patient is progressing back to baseline - Discharge Instructions Instructions: Ciprofloxacin (By mouth), Oxycodone/Acetaminophen (By mouth), Metronidazole (By mouth), Omeprazole (By mouth), Crohn Disease (DC) Follow Up With: NO,PCP [Primary Care Provider] - Karen Ascencio MD [Partnered Physician] - (Dr. Ascencio's office will call with appointment day and time. ) Additional Instructions: Follow-up with GI in 1 week - Diet and Activity Activity: resume usual activities as tolerated Diet: regular diet Hospital course: Mr. Whitten is a 36 year old male patient with history of Crohn's disease who was admitted here for possible Crohn's flareup. He had episodes of hematochezia before presentation. He was admitted here and treated with IV steroids. He had a leukocytosis on presentation and also was started on ciprofloxacin and Flagyl. GI was consulted. Patient's symptoms improved with this treatment regimen. Patient underwent colonoscopy yesterday which did not show any active disease in the colon. At this time patient is tolerating regular diet well. Discussed with GI and they recommended discharging the patient and arranging outpatient follow-up with possible capsule endoscopy for further evaluation. For now patient's hemoglobin levels have remained stable. He will complete a short course of ciprofloxacin and Flagyl. No need for further steroids per GI recommendations. - Time Spent with Patient Total time spent providing and/or coordinating discharge services: Greater than 30 minutes (35 min) - Constitutional Vitals: Temp Pulse Resp BP Pulse Ox 97.6 F 92 18 126/72 96 02/18/17 06:46 02/18/17 06:46 02/18/17 06:46 02/18/17 06:46 02/18/17 06:46 General appearance: Present: cooperative, A&O X 3, no acute distress, answers questions appropriately - Respiratory Respiratory exam: Present: CTAB. Absent: accessory muscle use, rales, rhonchi, wheezes - Cardiovascular Cardiovascular exam: Present: RRR, +S1, +S2. Absent: diastolic murmur, gallop, rubs, systolic murmur - GI/Abdominal GI/Abdominal exam: Present: normal bowel sounds, soft, no peritoneal signs. Absent: distended, tenderness - Extremities Exam Extremities exam: Present: warm, radial pulses palpable and symetrical. Absent : calf tenderness, cyanotic, pedal edema - Attending Attestation This document has been at least partially created by [employer] recognition technology by Dr. Viramontes. Errors in grammar, wording or other phrases may exist. If errors are found after the documentation is signed, they will be addressed individually in the addendum section of this document when appropriate.
== END 2017-02-18 12:00 | disposition home or self-care (01) | DRG 245 ==
LOC: 3BNU 14:57 → EMEROO 14:57 → 3BNU 22:12 → SUATTDRO 02-14 02:43
PROVIDERS: ADMIT Internal Medicine Cardiovascular Disease; ATTEND Internal Medicine